=== PATIENT | male | born 1985 | race African-American/Black ===

== ENCOUNTER 2022-03-30 20:12 | Inpatient (IN) | payer OTHER ==
[~2022-03-30] VITALS: Ht 365.8 cm; Wt 76.7 kg
[~2022-03-30 20:12] MED LIST: CYCL10TA21 PO; ENOX40SY27 SQ; METF-414 MT
[2022-03-30] MEDS ORDERED: ADENOSINE 3 MG/ML 2ML VIAL IV ONE ×3 (20:30→20:45)
[2022-03-30 20:44] LABS: BASOPHILS % 0.4 % (0.0-2.0); HEMATOCRIT. 45.6 % (42.0-52.0); HEMOGLOBIN. 14.9 g/dL (14.0-18.0); LYMPHOCYTES % 7.1 % (20.0-50.0); MEAN CORPUSCULAR HEMOGLOBIN 29.5 pg (28.0-32.0); MEAN CORPUSCULAR VOLUME 90.6 fL (80.0-94.0); MEAN PLATELET VOLUME 8.8 fl (7.4-10.4); MONOCYTES % 8.9 % (2.0-8.0); NEUTROPHILS % 83.6 % (40.0-76.0); PLATELET 353 x1000/uL (130-400); RED BLOOD CELL COUNT 5.04 mill/uL (4.7-6.1); RED CELL DISTRIBUTION WIDTH 13.8 % (11.6-14.6)
[2022-03-30 20:55] LABS: CHLORIDE 102 mEq/L (98-107)
[2022-03-30] MEDS ORDERED: DILTIAZEM HCL 5MG/ML 5ML VIAL IV ONE (21:00)
[2022-03-30] MEDS ORDERED: SODIUM CHLORIDE 0.9% 1,000 ML IV ONE ×2 (21:00→22:30)
[2022-03-30] MEDS ORDERED: DILTIAZEM HCL 125 MG in DEXT 5% WATER 100 ML IV ONE (21:15)
[2022-03-30] MEDS ORDERED: CEFEPIME 1,000 MG in DEXTROSE 5% WATER 50 ML IV NR (21:30)
[2022-03-30] MEDS ORDERED: VANCOMYCIN 1G PREMIX 200 ML IV NR (21:30)
[2022-03-30] MEDS ORDERED: DILTIAZEM 125MG/125ML PMX 125 ML IV NR (21:30)
[2022-03-30] MEDS ORDERED: DIGOXIN 50MCG/ML ORAL SYR PO ONE (22:30)
[2022-03-30] MEDS ORDERED: DILTIAZEM HCL 60MG TABLET PO NR (22:30)
[2022-03-30] MEDS ORDERED: DILTIAZEM 125MG/125ML PMX 125 ML IV PRN (22:30)
[2022-03-30] MEDS ORDERED: DIGOXIN 500MCG/2ML AMP IV ONE (22:45)
[2022-03-31] VITALS (8 sets, daily range): BP systolic 108–122; BP diastolic 71–76
[2022-03-31] MEDS: ACETAMINOPHEN 650MG SUPP PR PRN ×2 (00:35→08:12)
[2022-03-31] MEDS ORDERED: DILTIAZEM HCL 60MG TABLET PO NR (06:30)
[2022-03-31] MEDS ORDERED: DIGOXIN 500MCG/2ML AMP IV NR (06:30)
[2022-03-31 07:46] LABS: HEMATOCRIT. 38.3 % (42.0-52.0); HEMOGLOBIN. 12.6 g/dL (14.0-18.0); MEAN CORPUSCULAR HEMOGLOBIN 29.7 pg (28.0-32.0); MEAN CORPUSCULAR VOLUME 90.2 fL (80.0-94.0); MEAN PLATELET VOLUME 9.2 fl (7.4-10.4); PLATELET 254 x1000/uL (130-400); RED BLOOD CELL COUNT 4.24 mill/uL (4.7-6.1); RED CELL DISTRIBUTION WIDTH 13.9 % (11.6-14.6)
[2022-03-31] MEDS ORDERED: ONDANSETRON HCL 4MG/2ML INJ IV PRN (08:15)
[2022-03-31] MEDS ORDERED: DEXTROSE 50% WATER 50ML SYRINGE IV PRN (08:15)
[2022-03-31 08:45] LABS: PLATELET ESTIMATE NORMAL
[2022-03-31] MEDS: SODIUM CHLORIDE 0.9% 1,000 ML IV SCH ×2 (09:34→22:06)
[2022-03-31] MEDS ORDERED: DILTIAZEM HCL 5MG/ML 5ML VIAL IV SCH (10:00)
[2022-03-31] MEDS ORDERED: PIPERACILLIN/TAZOBACTAM 3.375 G in DEXTROSE 5% WATER 50 ML IV SCH ×2 (10:00→11:00)
[2022-03-31] MEDS ORDERED: VANCOMYCIN 1.25GM PMX (XELLIA) 250 ML IV SCH (11:00)
[2022-03-31 11:03] LABS: CHLORIDE 106 mEq/L (98-107)
[2022-03-31] MEDS: BLOOD SUGAR DIAGNOSTIC STRIP TEST SCH ×3 (12:20→20:25)
[2022-03-31] MEDS: INSULIN LISPRO 100 UNITS/ML SUBCUT SCH ×3 (12:20→20:25)
[2022-03-31] MEDS: VANCOMYCIN 750MG PMX (XELLIA) 150 ML IV SCH ×2 (12:22→20:26)
[2022-03-31] MEDS: MEROPENEM 1,000 MG in SODIUM CHLORIDE 0.9% 100 ML IV SCH ×3 (12:22→22:06)
[2022-03-31] MEDS: DILTIAZEM HCL 60MG TABLET NG SCH ×2 (14:50→22:06)
[2022-03-31 16:36] LABS: CLARITY URINE CLOUDY (CLEAR); COLOR URINE ORANGE (YELLOW); KETONES URINE TRACE (NEGATIVE); LEUKOCYTE ESTERASE URINE 1+ (NEGATIVE); NITRITE URINE NEGATIVE (NEGATIVE); OCCULT BLOOD URINE 2+ (NEGATIVE); PROTEIN URINE 3+ (NEGATIVE); SPECIFIC GRAVITY URINE 1.033 (1.005-1.030)
[2022-03-31] MEDS: COLISTIMETHATE SODIUM 150MG/VIAL INH SCH (20:36)
[2022-03-31] MEDS: ACETYLCYSTEINE 100MG/ML 10% VIAL 4ML INH SCH (22:00)
[2022-04-01] VITALS (12 sets, daily range): BP systolic 112–132; BP diastolic 68–82
[2022-04-01] MEDS: IPRATROPIUM BROMIDE (0.02%) 0.5MG/2.5ML NEB HHN SCH ×4 (00:29→15:44)
[2022-04-01] MEDS: ACETYLCYSTEINE 100MG/ML 10% VIAL 4ML INH SCH ×3 (00:33→15:44)
[2022-04-01] MEDS: MEROPENEM 1,000 MG in SODIUM CHLORIDE 0.9% 100 ML IV SCH ×3 (05:41→22:16)
[2022-04-01] MEDS: DILTIAZEM HCL 60MG TABLET NG SCH ×3 (05:44→22:16)
[2022-04-01 06:10] LABS: CHLORIDE 107 mEq/L (98-107)
[2022-04-01 06:17] LABS: BASOPHILS % 0.1 % (0.0-2.0); EOSINOPHILS % 0.2 % (0.0-5.0); HEMATOCRIT. 38.9 % (42.0-52.0); HEMOGLOBIN. 12.7 g/dL (14.0-18.0); LYMPHOCYTES % 10.9 % (20.0-50.0); MEAN CORPUSCULAR HEMOGLOBIN 30.3 pg (28.0-32.0); MEAN CORPUSCULAR VOLUME 92.7 fL (80.0-94.0); MEAN PLATELET VOLUME 9.2 fl (7.4-10.4); MONOCYTES % 9.3 % (2.0-8.0); NEUTROPHILS % 79.5 % (40.0-76.0); PLATELET 228 x1000/uL (130-400); RED CELL DISTRIBUTION WIDTH 13.4 % (11.6-14.6)
[2022-04-01] MEDS: INSULIN LISPRO 100 UNITS/ML SUBCUT SCH ×4 (08:00→21:00)
[2022-04-01] MEDS: BLOOD SUGAR DIAGNOSTIC STRIP TEST SCH ×4 (08:04→21:00)
[2022-04-01] MEDS: VANCOMYCIN 750MG PMX (XELLIA) 150 ML IV SCH ×3 (08:22→22:15)
[2022-04-01] MEDS ORDERED: AMIODARONE HCL 900 MG in DEXT 5% WATER 482 ML IV SCH (11:00)
[2022-04-01] MEDS ORDERED: AMIODARONE HCL 150 MG in DEXT 5% WATER 100 ML IV NR (11:00)
[2022-04-01] MEDS ORDERED: MAGNESIUM 2 G PREMIX 50 ML IV NR (12:00)
[2022-04-01] MEDS: SODIUM CHLORIDE 0.9% 1,000 ML IV SCH (12:32)
[2022-04-01] MEDS: MAGNESIUM OXIDE 400MG TABLET GT SCH (13:28)
[2022-04-01] MEDS ORDERED: SODIUM CHLORIDE 3% FOR INH 4ML UD NEB INH SCH (13:30)
[2022-04-01] MEDS: COLISTIMETHATE SODIUM 150MG/VIAL INH SCH (19:54)
[2022-04-02] VITALS (12 sets, daily range): BP systolic 116–136; BP diastolic 54–91
[2022-04-02] MEDS: SODIUM CHLORIDE 0.9% 1,000 ML IV SCH ×2 (00:41→13:32)
[2022-04-02 04:17] LABS: BASOPHILS % 0.2 % (0.0-2.0); EOSINOPHILS % 1.1 % (0.0-5.0); HEMATOCRIT. 33.1 % (42.0-52.0); HEMOGLOBIN. 11.3 g/dL (14.0-18.0); LYMPHOCYTES % 12.8 % (20.0-50.0); MEAN CORPUSCULAR HEMOGLOBIN 30.3 pg (28.0-32.0); MEAN CORPUSCULAR VOLUME 89.1 fL (80.0-94.0); MEAN PLATELET VOLUME 8.9 fl (7.4-10.4); NEUTROPHILS % 77.9 % (40.0-76.0); PLATELET 269 x1000/uL (130-400); RED BLOOD CELL COUNT 3.71 mill/uL (4.7-6.1); RED CELL DISTRIBUTION WIDTH 13.2 % (11.6-14.6)
[2022-04-02 04:22] LABS: CHLORIDE 106 mEq/L (98-107)
[2022-04-02 04:37] LABS: VANCOMYCIN TROUGH 20.5 ug/mL (5.0-10.0)
[2022-04-02] MEDS: MEROPENEM 1,000 MG in SODIUM CHLORIDE 0.9% 100 ML IV SCH ×3 (05:42→22:31)
[2022-04-02] MEDS: DILTIAZEM HCL 60MG TABLET NG SCH ×3 (05:43→17:26)
[2022-04-02] MEDS: VANCOMYCIN 750MG PMX (XELLIA) 150 ML IV SCH (06:23)
[2022-04-02] MEDS: BLOOD SUGAR DIAGNOSTIC STRIP TEST SCH ×4 (07:30→21:00)
[2022-04-02] MEDS: INSULIN LISPRO 100 UNITS/ML SUBCUT SCH ×4 (08:00→21:00)
[2022-04-02] MEDS: ACETYLCYSTEINE 100MG/ML 10% VIAL 4ML INH SCH ×2 (08:50→17:43)
[2022-04-02] MEDS: IPRATROPIUM BROMIDE (0.02%) 0.5MG/2.5ML NEB HHN SCH ×2 (08:50→17:42)
[2022-04-02] MEDS: PANTOPRAZOLE SODIUM 40 MG/VIAL IV SCH (08:55)
[2022-04-02] MEDS: MAGNESIUM OXIDE 400MG TABLET GT SCH (08:55)
[2022-04-02] MEDS ORDERED: POTASSIUM CHLORIDE 20MEQ/PACKET GT SCH (09:30)
[2022-04-02] MEDS: MULTIVITAMINS,THER W-MINERALS TABLET PO SCH (13:24)
[2022-04-02] MEDS: AMIODARONE HCL 200 MG TABLET GT SCH ×2 (13:26→22:31)
[2022-04-02] MEDS: COLISTIMETHATE SODIUM 150MG/VIAL INH SCH (20:40)
[2022-04-02] MEDS ORDERED: POTASSIUM CHLORIDE 20MEQ/PACKET GT NR (21:00)
[2022-04-02] MEDS: VANCOMYCIN 1G PREMIX 200 ML IV SCH (22:32)
[2022-04-02] MEDS: DILTIAZEM HCL 30MG TABLET NG SCH (23:51)
[2022-04-03] VITALS (12 sets, daily range): BP systolic 114–134; BP diastolic 72–91
[2022-04-03] MEDS: ACETYLCYSTEINE 100MG/ML 10% VIAL 4ML INH SCH (00:42)
[2022-04-03] MEDS: IPRATROPIUM BROMIDE (0.02%) 0.5MG/2.5ML NEB HHN SCH (00:42)
[2022-04-03] MEDS: SODIUM CHLORIDE 0.9% 1,000 ML IV SCH ×2 (03:51→16:03)
[2022-04-03 06:04] LABS: BASOPHILS % 0.1 % (0.0-2.0); EOSINOPHILS % 1.5 % (0.0-5.0); HEMATOCRIT. 31.4 % (42.0-52.0); HEMOGLOBIN. 10.4 g/dL (14.0-18.0); LYMPHOCYTES % 14.8 % (20.0-50.0); MEAN CORPUSCULAR VOLUME 90.5 fL (80.0-94.0); MEAN PLATELET VOLUME 8.8 fl (7.4-10.4); MONOCYTES % 8.7 % (2.0-8.0); NEUTROPHILS % 74.9 % (40.0-76.0); PLATELET 277 x1000/uL (130-400); RED BLOOD CELL COUNT 3.47 mill/uL (4.7-6.1); RED CELL DISTRIBUTION WIDTH 13.2 % (11.6-14.6)
[2022-04-03] MEDS: MEROPENEM 1,000 MG in SODIUM CHLORIDE 0.9% 100 ML IV SCH ×3 (06:17→21:26)
[2022-04-03] MEDS: DILTIAZEM HCL 30MG TABLET NG SCH ×4 (06:17→23:10)
[2022-04-03 06:48] LABS: CHLORIDE 109 mEq/L (98-107)
[2022-04-03] MEDS: BLOOD SUGAR DIAGNOSTIC STRIP TEST SCH ×4 (07:30→21:26)
[2022-04-03] MEDS: INSULIN LISPRO 100 UNITS/ML SUBCUT SCH ×4 (08:00→21:00)
[2022-04-03] MEDS: MULTIVITAMINS,THER W-MINERALS TABLET PO SCH (08:40)
[2022-04-03] MEDS: MAGNESIUM OXIDE 400MG TABLET GT SCH (08:41)
[2022-04-03] MEDS: AMIODARONE HCL 200 MG TABLET GT SCH ×2 (08:41→21:26)
[2022-04-03] MEDS: PANTOPRAZOLE SODIUM 40 MG/VIAL IV SCH (08:41)
[2022-04-03] MEDS: COLISTIMETHATE SODIUM 150MG/VIAL INH SCH ×2 (12:00→20:08)
[2022-04-03] MEDS: VANCOMYCIN 1G PREMIX 200 ML IV SCH ×2 (12:11→21:26)
[2022-04-03] MEDS ORDERED: CHLORPROMAZINE HCL 25 MG TABLET PO PRN (13:15)
[2022-04-03] MEDS ORDERED: COLI150V9 IJ (18:13)
[2022-04-04] VITALS (12 sets, daily range): BP systolic 112–123; BP diastolic 57–84
[2022-04-04] MEDS: ACETYLCYSTEINE 100MG/ML 10% VIAL 4ML INH SCH ×3 (01:07→20:37)
[2022-04-04] MEDS: IPRATROPIUM BROMIDE (0.02%) 0.5MG/2.5ML NEB HHN SCH ×3 (01:07→20:37)
[2022-04-04] MEDS: MEROPENEM 1,000 MG in SODIUM CHLORIDE 0.9% 100 ML IV SCH ×2 (05:05→15:41)
[2022-04-04] MEDS: DILTIAZEM HCL 30MG TABLET NG SCH ×3 (05:05→17:58)
[2022-04-04 05:53] LABS: HEMOGLOBIN. 11.8 g/dL (14.0-18.0); MEAN CORPUSCULAR HEMOGLOBIN 30.5 pg (28.0-32.0); MEAN CORPUSCULAR VOLUME 90.6 fL (80.0-94.0); PLATELET 293 x1000/uL (130-400); RED BLOOD CELL COUNT 3.86 mill/uL (4.7-6.1); RED CELL DISTRIBUTION WIDTH 13.2 % (11.6-14.6)
[2022-04-04 05:55] LABS: CHLORIDE 104 mEq/L (98-107)
[2022-04-04 07:20] LABS: PLATELET ESTIMATE NORMAL
[2022-04-04] MEDS: INSULIN LISPRO 100 UNITS/ML SUBCUT SCH ×3 (07:50→17:53)
[2022-04-04] MEDS: BLOOD SUGAR DIAGNOSTIC STRIP TEST SCH ×3 (07:50→17:53)
[2022-04-04] MEDS: MAGNESIUM OXIDE 400MG TABLET GT SCH (08:31)
[2022-04-04] MEDS: AMIODARONE HCL 200 MG TABLET GT SCH (08:31)
[2022-04-04] MEDS: MULTIVITAMINS,THER W-MINERALS TABLET PO SCH (08:31)
[2022-04-04] MEDS: PANTOPRAZOLE SODIUM 40 MG/VIAL IV SCH (08:36)
[2022-04-04] MEDS: VANCOMYCIN 1G PREMIX 200 ML IV SCH (11:17)
[2022-04-04] MEDS: SODIUM CHLORIDE 0.9% 1,000 ML IV SCH (11:20)
[2022-04-04] MEDS: COLISTIMETHATE SODIUM 150MG/VIAL INH SCH ×2 (12:01→20:37)
[2022-04-04] MEDS ORDERED: COLI150V9 INH (17:52)
== END 2022-04-04 21:30 | disposition home health service (06) | DRG 720 ==
LOC: ER 20:12 → MICUSO 23:12 → 5EST 03-31 08:51
PROVIDERS: ADMIT Internal Medicine; ATTEND Internal Medicine
PROC: 5A2204Z Restoration of Cardiac Rhythm, Single (ICD-10-PCS; principal; 2022-03-30)
DX: A41.50 Gram-negative sepsis, unspecified (principal); J96.21 Acute and chronic respiratory failure with hypoxia; G82.50 Quadriplegia, unspecified; G93.49 Other encephalopathy; J15.6 Pneumonia due to other Gram-negative bacteria; E44.0 Moderate protein-calorie malnutrition; L89.014 Pressure ulcer of right elbow, stage 4; L89.024 Pressure ulcer of left elbow, stage 4; I47.1 Supraventricular tachycardia; E11.9 Type 2 diabetes mellitus without complications; I10 Essential (primary) hypertension; D64.9 Anemia, unspecified; E83.42 Hypomagnesemia; E88.09 Other disorders of plasma-protein metabolism, not elsewhere classified; Z20.822 Contact with and (suspected) exposure to COVID-19; R53.81 Other malaise; N39.0 Urinary tract infection, site not specified; R13.12 Dysphagia, oropharyngeal phase; Z16.24 Resistance to multiple antibiotics; Z74.01 Bed confinement status; Z79.84 Long term (current) use of oral hypoglycemic drugs; Z79.899 Other long term (current) drug therapy; Z82.49 Family history of ischemic heart disease and other diseases of the circulatory system; Z83.3 Family history of diabetes mellitus; Z87.820 Personal history of traumatic brain injury; Z93.0 Tracheostomy status; I25.2 Old myocardial infarction; Z68.1 Body mass index [BMI] 19.9 or less, adult
CPT/HCPCS: 36415; 71045; 71250; 80048; 80053; 80202; 81003; 82040; 82962; 83605; 83735; 83880; 84134; 84145; 84443; 84484; 85025; 87070; 87077; 87186; 87426; 93005; 94640; 94664; 94667; 97161; 99291; C9113; J0153; J0282; J0692; J0770; J1160; J2185; J2543; J3370; J3475; J3490; J7030; J7050; J7060; J7608; Q0161; A4315

== ENCOUNTER 2024-05-14 18:50 | Emergency (ER) | payer MEDICAID, OTHER ==
[~2024-05-14] VITALS: Ht 182.9 cm; Wt 80.0 kg
[~2024-05-14 18:50] MED LIST changes: +COLI150V9 IJ; +COLI150V9 INH
[2024-05-14 18:54] VITALS: O2SAT 98
[2024-05-14] MEDS ORDERED: SODIUM CHLORIDE 0.9% (SEPSIS BOLUS) IV ONE (20:30)
[2024-05-14 21:19] LABS: CHLORIDE 110 mEq/L (98-107); POTASSIUM 3.9 mEq/L (3.5-5.1); SODIUM 140 mEq/L (136-145)
[2024-05-14 21:20] LABS: CALCIUM 9.1 mg/dL (8.7-10.4); CARBON DIOXIDE 24 mEq/L (21-32)
[2024-05-14 21:23] LABS: BASOPHILS % 0.4 % (0.0-2.0); EOSINOPHILS % 0.7 % (0.0-5.0); HEMATOCRIT. 44.2 % (42.0-52.0); HEMOGLOBIN. 14.8 g/dL (14.0-18.0); LYMPHOCYTES % 28.3 % (20.0-50.0); MEAN CORPUSCULAR HGB CONC 33.5 g/dL (31.0-37.0); MEAN CORPUSCULAR VOLUME 86.3 fL (80.0-94.0); MEAN PLATELET VOLUME 8.5 fl (7.4-10.4); NEUTROPHILS % 66.6 % (40.0-76.0); PLATELET 235 x1000/uL (130-400); RED BLOOD CELL COUNT 5.11 mill/uL (4.7-6.1); RED CELL DISTRIBUTION WIDTH 13.9 % (11.6-14.6); WHITE BLOOD COUNT 7.9 x1000/uL (4.5-11.0)
[2024-05-14 21:25] LABS: CREATININE 0.5 mg/dL (0.6-1.3); GLUCOSE 90 mg/dL (70-105); UREA NITROGEN BLOOD 8 mg/dL (9-23)
[2024-05-14 21:27] LABS: TROPONIN I HIGH SENSITIVITY < 4 ng/L (3.0-53)
[2024-05-15 01:40] VITALS: TEMP 36.89184
[2024-05-15 02:02] VITALS: BP 107/76; PULSE 70; RESP 10; O2SAT 95
== END 2024-05-15 02:10 | disposition short-term general hospital (02) ==
LOC: ER 18:50 → CANBEDREQ 05-15 02:07 → ER 05-15 02:10
DX: Z93.1 Gastrostomy status (principal); Z86.74 Personal history of sudden cardiac arrest; Z82.49 Family history of ischemic heart disease and other diseases of the circulatory system; Z79.84 Long term (current) use of oral hypoglycemic drugs; Z83.3 Family history of diabetes mellitus; Z87.820 Personal history of traumatic brain injury; I25.2 Old myocardial infarction
CPT/HCPCS: 80048; 83605; 85025; 85610; 87040; 84484; 36415; 84145; 71045; 93005; 99285; J7030; Z7610

== ENCOUNTER 2025-06-11 01:03 | Inpatient (IN) | payer MEDICAID, OTHER ==
[~2025-06-11] VITALS: Ht 172.7 cm; Wt 75.3 kg
[2025-06-11 02:41] LABS: BASOPHILS % 0.1 % (0.0-2.0); EOSINOPHILS % 0.0 % (0.0-5.0); HEMATOCRIT. 53.3 % (42.0-52.0); HEMOGLOBIN. 17.5 g/dL (14.0-18.0); LYMPHOCYTES % 7.7 % (20.0-50.0); MEAN PLATELET VOLUME 7.9 fl (7.4-10.4); MONOCYTES % 5.1 % (2.0-8.0); NEUTROPHILS % 87.1 % (40.0-76.0); PLATELET 233 x1000/uL (130-400); RED BLOOD CELL COUNT 5.89 mill/uL (4.7-6.1); RED CELL DISTRIBUTION WIDTH 13.3 % (11.6-14.6)
[2025-06-11 02:54] LABS: CREATININE 1.0 mg/dL (0.6-1.3)
[2025-06-11 02:55] LABS: PROTEIN TOTAL 8.1 g/dL (6.0-8.3); UREA NITROGEN BLOOD 10 mg/dL (9-23)
[2025-06-11 02:56] LABS: ASPARTATE AMINOTRANSFERASE 26 IU/L (<34)
[2025-06-11 02:57] LABS: BILIRUBIN DIRECT 0.3 mg/dL (<=3.0); BILIRUBIN TOTAL 0.8 mg/dL (0.1-1.0)
[2025-06-11] MEDS: SODIUM CHLORIDE 0.9% (SEPSIS BOLUS) IV ONE (03:31)
[2025-06-11] MEDS: PIPERACILLIN/TAZO 3.375G/50ML 50 ML IV ONE (03:32)
[2025-06-11] MEDS: VANCOMYCIN 1G PREMIX 200 ML IV ONE (04:02)
[2025-06-11 04:06] LABS: CLARITY URINE CLEAR (CLEAR); COLOR URINE DARK YELLOW (YELLOW); GLUCOSE URINE NEGATIVE (NEGATIVE); KETONES URINE 1+ (NEGATIVE); LEUKOCYTE ESTERASE URINE TRACE (NEGATIVE); NITRITE URINE NEGATIVE (NEGATIVE); OCCULT BLOOD URINE TRACE (NEGATIVE); PH URINE 7.5 (4.5-8.0); PROTEIN URINE 1+ (NEGATIVE); SPECIFIC GRAVITY URINE 1.034 (1.005-1.030); UROBILINOGEN URINE 1.0 E.U./dL (0.2-1.0)
[2025-06-11] MEDS ORDERED: ONDANSETRON HCL 4MG/2ML INJ IV PRN (05:15)
[2025-06-11] MEDS ORDERED: DEXTROSE 50% WATER 50ML SYRINGE IV PRN (05:15)
[2025-06-11] MEDS ORDERED: ACETAMINOPHEN 325MG TABLET PO PRN ×2 (05:15)
[2025-06-11 05:32] LABS: PHOSPHORUS 3.3 mg/dL (2.5-4.9)
[2025-06-11 05:34] LABS: SQUAMOUS EPITHELIAL CELL URINE NONE SEEN /lpf (RARE/1+); WBC URINE 0-2 /hpf (0-2)
[2025-06-11 05:35] LABS: BACTERIA URINE NONE SEEN
[2025-06-11 06:00] VITALS: BP 115/77; PULSE 100; RESP 16; TEMP 37.0852
[2025-06-11] MEDS: DILTIAZEM HCL 30MG TABLET PO SCH (06:00)
[2025-06-11] MEDS: BLOOD SUGAR DIAGNOSTIC STRIP TEST SCH (06:00)
[2025-06-11] MEDS ORDERED: AZITHROMYCIN 500MG/250ML 250 ML IV SCH (06:00)
[2025-06-11] MEDS: INSULIN LISPRO 100 UNITS/ML SUBCUT SCH (07:15)
[2025-06-11 08:00] VITALS: BP 98/69; PULSE 96; RESP 16; TEMP 36.1; O2SAT 97
[2025-06-11] MEDS: DEXT 5%/0.45% NACL 1000ML 1,000 ML IV SCH (08:19)
[2025-06-11] MEDS: MAGNESIUM 1 G PREMIX 100 ML IV NR (09:25)
[2025-06-11] MEDS: PANTOPRAZOLE SODIUM 40 MG/VIAL IV SCH (09:25)
[2025-06-11 09:29] LABS: T4 FREE 1.46 ng/dL (0.89-1.76)
[2025-06-11] MEDS: AZITHROMYCIN 500MG/250ML 250 ML IV SCH (11:02)
[2025-06-11 12:00] VITALS: BP 107/82; PULSE 103; RESP 18; TEMP 36.4; O2SAT 97
[2025-06-11] MEDS: VANCOMYCIN 1.25GM/250ML 250 ML IV SCH (13:24)
[2025-06-11] MEDS ORDERED: VANCOMYCIN 1G PREMIX 200 ML IV SCH (14:00)
[2025-06-11] MEDS: PIPERACILLIN/TAZO 3.375G/50ML 50 ML IV SCH (15:44)
[2025-06-11 16:00] VITALS: BP 100/71; PULSE 90; RESP 18; TEMP 37.1
[2025-06-11 20:00] VITALS: BP 101/65; PULSE 71; RESP 16; TEMP 36.3
[2025-06-12] VITALS (10 sets, daily range): BP systolic 101–139; BP diastolic 65–85; PULSE 58–89; RESP 14–20; TEMP 36.2–38.3; O2SAT 94–100
[2025-06-12] MEDS: IPRATROPIUM/ALBUTEROL 0.5-3(2.5)MG/3ML NEB HHN PRN (04:09)
[2025-06-12 06:55] LABS: BASOPHILS % 0.3 % (0.0-2.0); EOSINOPHILS % 0.3 % (0.0-5.0); HEMATOCRIT. 41.3 % (42.0-52.0); HEMOGLOBIN. 13.9 g/dL (14.0-18.0); LYMPHOCYTES % 23.9 % (20.0-50.0); MEAN PLATELET VOLUME 8.0 fl (7.4-10.4); MONOCYTES % 5.7 % (2.0-8.0); NEUTROPHILS % 69.8 % (40.0-76.0); PLATELET 178 x1000/uL (130-400); RED BLOOD CELL COUNT 4.62 mill/uL (4.7-6.1); RED CELL DISTRIBUTION WIDTH 13.2 % (11.6-14.6)
[2025-06-12 08:06] LABS: INR 1.0
[2025-06-12 08:31] LABS: UREA NITROGEN BLOOD < 5 mg/dL (9-23)
[2025-06-12 08:32] LABS: PROTEIN TOTAL 6.4 g/dL (6.0-8.3)
[2025-06-12 08:33] LABS: ASPARTATE AMINOTRANSFERASE 17 IU/L (<34); BILIRUBIN DIRECT 0.2 mg/dL (<=3.0); BILIRUBIN TOTAL 0.4 mg/dL (0.1-1.0)
[2025-06-12 08:35] LABS: CREATININE 0.6 mg/dL (0.6-1.3)
[2025-06-12] MEDS: BISACODYL 10MG SUPP PR SCH (12:00)
[2025-06-12] MEDS: LACTULOSE 20G/30ML UDC GT SCH (12:00)
[2025-06-12] MEDS ORDERED: DIATR MEGLU/DIATRIZOATE SOLN 30ML ONE (16:05)
[2025-06-12] MEDS ORDERED: BISACODYL 10MG SUPP PR SCH (18:30)
[2025-06-12] MEDS: LACTULOSE 20G/30ML UDC PO SCH (21:00)
[2025-06-13] VITALS (9 sets, daily range): BP systolic 112–132; BP diastolic 62–81; PULSE 64–94; RESP 16–20; TEMP 36.3–36.9; O2SAT 94–100
[2025-06-14] VITALS (7 sets, daily range): BP systolic 109–132; BP diastolic 70–80; PULSE 60–76; RESP 15–18; TEMP 36.2–36.4; O2SAT 98–100
== END 2025-06-14 21:30 | disposition home or self-care (01) | DRG 720 ==
LOC: ER 01:03 → 5WST 03:32 → EDBEDREQTM 03:34 → EDBEDREQ 03:34 → ENRESERV 04:17
PROVIDERS: ADMIT Hospitalist; ATTEND Hospitalist
DX: A41.9 Sepsis, unspecified organism (principal); G93.41 Metabolic encephalopathy; J69.0 Pneumonitis due to inhalation of food and vomit; R53.2 Functional quadriplegia; E87.0 Hyperosmolality and hypernatremia; J18.9 Pneumonia, unspecified organism; J96.10 Chronic respiratory failure, unspecified whether with hypoxia or hypercapnia; I10 Essential (primary) hypertension; E03.8 Other specified hypothyroidism; E11.65 Type 2 diabetes mellitus with hyperglycemia; K56.41 Fecal impaction; Z86.19 Personal history of other infectious and parasitic diseases; Z16.24 Resistance to multiple antibiotics; Z87.820 Personal history of traumatic brain injury; Z79.84 Long term (current) use of oral hypoglycemic drugs; Z79.899 Other long term (current) drug therapy; Z74.01 Bed confinement status
CPT/HCPCS: 31720; 36415; 71045; 74018; 74176; 80048; 80076; 80202; 81003; 82550; 82962; 83036; 83605; 83735; 84100; 84145; 84439; 84443; 85025; 86376; 93005; 93970; 94070; 94640; 94664; 96365; 99291; A4606; A4615; J0456; J2470; J2543; J3373; J3475; J7030; Q9963